=== PATIENT | female | born 1955 | race Caucasian/White ===

== ENCOUNTER 2023-10-22 10:27 | Emergency (ER) | payer OTHER ==
[~2023-10-22] VITALS: Ht 157.5 cm; Wt 113.5 kg
[2023-10-22 11:13] VITALS: BP 149/63; PULSE 80; RESP 18; TEMP 98.4; O2SAT 94
[2023-10-22] MEDS: FLUORESCEIN SOD OPTH TEST STRIP EACHEYE ONE (11:25)
[2023-10-22] MEDS: TETRACAINE HCL 0.5% OPTH(EYE) SOLN 4ML EACHEYE ONE (11:25)
[2023-10-22] MEDS ORDERED: MELO7.5T7 PO (12:14)
[2023-10-22] MEDS ORDERED: ERY05OO OP (12:14)
== END 2023-10-22 12:30 | disposition home or self-care (01) ==
LOC: ER 10:27
DX: H10.9 Unspecified conjunctivitis (principal); M25.569 Pain in unspecified knee; Z88.0 Allergy status to penicillin; Z91.013 Allergy to seafood